=== PATIENT | male | born 1970 | race African-American/Black ===

== ENCOUNTER 2025-03-21 07:54 | Emergency (ER) | payer OTHER, MEDICAID ==
[2025-03-21] MEDS ORDERED: Acetaminophen 325 MG TAB ONE (08:18)
== END 2025-03-21 09:39 | disposition home or self-care (01) ==
LOC: CSHERS 07:54
DX: B34.9 Viral infection, unspecified (principal); I10 Essential (primary) hypertension; F17.290 Nicotine dependence, other tobacco product, uncomplicated
CPT/HCPCS: 87428; 99283

== ENCOUNTER 2025-05-21 08:21 | Emergency (ER) | payer OTHER ==
[2025-05-21 08:47] LABS: #Basophils 0.06 10x3/uL (0.0-0.2); #Eosinophils 0.37 10x3/uL (0.0-0.5); #Monocytes 0.71 10x3/uL (0.0-1.1); #Neutrophils 4.35 10x3/uL (1.5-8.4); %Basophils 0.8 % (0.0-2.0); %Eosinophils 4.8 % (0.0-6.0); %Lymphocytes 26.6 % (18.0-47.0); %Monocytes 9.3 % (0.0-10.0); %Neutrophils 57.1 % (40.0-75.0); Hematocrit 44.2 % (38.8-50.0); Hemoglobin 15.5 g/dL (13.5-17.5); Mean Corpuscular Hemoglobin 30.3 pg (27.0-33.0); Mean Corpuscular Volume 86.5 fL (81.2-95.1); Platelet Count 309 10x3/uL (150-450); Red Blood Cell (RBC) Count 5.11 10x6/uL (4.32-5.72); White Blood Cell (WBC) Count 7.63 10x3/uL (3.5-10.5)
[2025-05-21 09:06] LABS: ALT (SGPT) 26 U/L (Less than 45); AST (SGOT) 22 U/L (11-34); Albumin 3.6 g/dL (3.1-4.5); Alkaline Phosphatase 51 U/L (40-110); Anion Gap 11 mmol/L (10-20); BUN (Urea Nitrogen) 15 mg/dL (8.4-25.7); Bilirubin, Total 1.0 mg/dL (0.3-1.2); Calc. Creatinine Clearance 0 mL/min (70-130); Calcium 8.7 mg/dL (7.8-10.44); Carbon Dioxide 23 mmol/L (22-29); Chloride 110 mmol/L (98-107); Globulin 2.6 g/dL (2.4-3.5); Glucose 99 mg/dL (70-105); Lipase 41 U/L (8-78); Potassium 4.5 mmol/L (3.5-5.1); Sodium 139 mmol/L (136-145)
[2025-05-21 09:12] LABS: Troponin I 0.017 ng/mL (< 0.028)
== END 2025-05-21 11:00 | disposition home or self-care (01) ==
LOC: CSHERS 08:21
DX: M54.6 Pain in thoracic spine (principal); R05.9 Cough, unspecified; I10 Essential (primary) hypertension; F17.290 Nicotine dependence, other tobacco product, uncomplicated
CPT/HCPCS: 71045; 80053; 83690; 84484; 85025; 85379; 93005; 94760